=== PATIENT | female | born 1970 | race Hispanic/Latino ===

== ENCOUNTER 2022-07-12 14:53 | Emergency (ER) | payer BC, OTHER ==
--- NOTE | 2022-07-12 17:06 | RAD REPORT ---
EXAM DESCRIPTION: US - Abdomen Exam Limited - 07/12/2022 4:19 pm CLINICAL HISTORY: EPIGASTRIC PAIN COMPARISON: HEPATOBILIARY DUCTAL IMAGING dated 04/27/2011 TECHNIQUE: Sonographic grayscale and color flow images of the right upper quadrant were obtained. FINDINGS: The gallbladder demonstrates small echogenic nonshadowing at current foci along the depend ent and anti dependent wall, could reflect small adherent calculi or small polyps. No pericholecystic fluid or gallbladder wall thickening. The common bile duct is normal measuring 4 mm. The liver demonstrates no findings of intrahepatic biliary dilatation. IMPRESSION: Small adherent calculi versus small polyps along the wall of the gallbladder. No sonogra phic findings to suggest acute cholecystitis.
[2022-07-12 17:43] LABS: Urine Blood Negative (Negative); Urine Glucose Negative (Negative); Urine Protein Negative (Negative); Urine pH 5.5 (5.0-7.0)
[2022-07-12 17:52] LABS: Urine Bacteria <20 /HPF (<20); Urine Mucus Slight /HPF (None Seen); Urine RBC <5 /HPF (None Seen)
[2022-07-12] MEDS ORDERED: ONDANSETRON 4 MG/2 ML VIAL ONE (18:21)
[2022-07-12 18:27] LABS: Absolute Lymphocytes (CBC) 1.6 K/uL (0.7-4.9); Hematocrit 43.1 % (36.0-45.0); Lymphocytes % 23.3 % (15.3-44.8); MCV 87.8 fL (80-100); MPV 7.6 fL (7.6-11.3); RBC Red Blood Cell Count 4.91 M/uL (3.86-4.86)
[2022-07-12 18:44] LABS: Albumin 3.7 g/dL (3.4-5.0); Bilirubin Total 0.3 mg/dL (0.2-1.0); Potassium 3.3 mmol/L (3.5-5.1); Protein, Total 7.8 g/dL (6.4-8.2)
[2022-07-12] MEDS ORDERED: POTASSIUM 25 MEQ EFFERV TAB ONE (19:36)
--- NOTE | 2022-07-12 19:42 | ER ---
Nurse's Notes [facility] Name: Janice Torrez Age: 51 yrs Sex: Female : 1970 Arrival Date: 07/12/2022 Time: 15:01 Bed 18 Private MD: Diagnosis: Epigastric pain;Gastro-esophageal reflux disease without esophagitis Presentation: 07/12 15:38 Chief complaint: Patient states: she feels like she has burning when she swallows. ap3 patient also reports constipation. last bowel movement was yesterday but it was very little. patient has pain in her esophagus at night when she lays down. Coronavirus screen: At this time, the client does not indicate any symptoms associated with coronavirus-19. Ebola Screen: No symptoms or risks identified at this time. Initial Sepsis Screen: Does the patient meet any 2 criteria? No. Patient's initial sepsis screen is negative. Does the patient have a suspected source of infection? No. Patient's initial sepsis screen is negative. Risk Assessment: Do you want to hurt yourself or someone else? Patient reports no desire to harm self or others. 15:38 Method Of Arrival: Ambulatory ap3 15:38 Acuity: JULIO C 3 ap3 15:46 Onset of symptoms was 2010. ap3 Triage Assessment: 15:44 General: Appears in no apparent distress. Behavior is calm, cooperative. EENT: Reports ap3 pain when swallowing. Neuro: Level of Consciousness is awake, alert, obeys commands, Oriented to person, place, time, situation, Gait is steady, Speech is normal. Cardiovascular: Patient's skin is warm and dry. Respiratory: Airway is patent Respiratory effort is even, unlabored, Respiratory pattern is regular, symmetrical. GI: Reports indigestion. Historical: - Allergies: 15:43 No Known Allergies; ap3 - Home Meds: 15:43 None [Active]; ap3 - PMHx: 15:43 Gastroesophageal reflux disease; ap3 - PSHx: 15:43 section; ap3 - Immunization history:: Client reports receiving the 2nd dose of the Covid vaccine, Flu vaccine is not up to date. - Social history:: Smoking status: Patient denies any tobacco usage or history of. Patient uses. Screenin:42 [facility] ED Fall Risk Assessment (Adult) History of falling in the last 3 months, ap3 including since admission No falls in past 3 months (0 pts). Abuse screen: Denies threats or abuse. Nutritional screening: No deficits noted. Tuberculosis screening: No symptoms or risk factors identified. Assessment: 15:42 Pain: Complains of pain in mid-sternal area. Respiratory: Airway is patent Respiratory ap3 effort is even, unlabored. 19:52 Respiratory: Breath sounds are clear. aa9 19:53 Reassessment: Patient appears in no apparent distress at this time. Patient and/or aa9 family updated on plan of care and expected duration. Pain level reassessed. Patient is alert, oriented x 3, equal unlabored respirations, skin warm/dry/pink. Patient denies pain at this time. Patient states feeling better. Vital Signs: 15:38 BP 123 / 83; Pulse 92; Resp 18; Temp 98.8; Pulse Ox 100% ; Weight 63.5 kg; ap3 19:52 BP 113 / 55; Pulse 85; Resp 19 S; Pulse Ox 98% on R/A; aa9 ED Course: 15:01 Patient arrived in ED. as 15:16 Wiley Marcus PA is PHCP. cp 15:16 Wiley Del Valle MD is Attending Physician. cp 15:41 Triage completed. ap3 15:42 Arm band placed on right wrist. ap3 17:38 Savannah Thornton, ROBYN is Primary Nurse. kr3 18:01 Urine --Ancillary (enter results) Sent. kr3 18:12 Urine Microscopic Only Sent. kr3 18:18 CBC with Diff Sent. mm9 18:18 CMP Sent. mm9 18:18 Lipase Sent. mm9 18:19 Patient has correct armband on for positive identification. Bed in low position. Call mm9 light in reach. Side rails up X 1. Adult w/ patient. Warm blanket given. Pulse ox on. NIBP on. 19:38 Laron Pollock MD is Referral Physician. cp 19:52 No provider procedures requiring assistance completed. IV discontinued, intact, aa9 bleeding controlled, No redness/swelling at site. Pressure dressing applied. Administered Medications: 18:49 Drug: Zofran (Ondansetron) 4 mg Route: IVP; Site: right antecubital; kr3 19:52 Drug: Potassium Effervescent Tablet 50 mEq Route: PO; aa9 19:52 Follow up: Response: No adverse reaction aa9 Medication: 19:52 VIS not applicable for this client. aa9 Outcome: 19:41 Discharge ordered by . diego 19:52 Discharged to home ambulatory, with family. aa9 19:52 Condition: stable 19:52 Discharge instructions given to patient, family, Instructed on discharge instructions, follow up and referral plans. medication usage, Demonstrated understanding of instructions, follow-up care, medications, Prescriptions given X 2. 19:53 Patient left the ED. aa9 Signatures: Marium Grullon Corey, Sindhu Manuel cp RN RN ap3 Shanta Yee RN RN aa9 Savannah Thornton RN RN kr3 Zarina Grullon mm9
--- NOTE | 2022-07-12 19:42 | EDPHYS ---
Physician Documentation [facility] Name: Janice Torrez Age: 51 yrs Sex: Female : 1970 Arrival Date: 07/12/2022 Time: 15:01 Bed 18 Private MD: ED Physician Wiley Del Valle HPI: 07/12 16:00 This 51 yrs old Female presents to ER via Ambulatory with complaints of Sore cp Throat, Weakness, Constipation, Vaginal Pain, Numbness. 16:00 The patient presents with sore throat. cp 16:00 Onset: The symptoms/episode began/occurred gradually. Severity of symptoms: in the emergency department the symptoms are unchanged. Associated signs and symptoms: Pertinent positives: epigastric burning, general weakness, Pertinent negatives fever, vomiting. Patient reports symptoms worse at night when lying back. Brought GI reports from 2010 that showed upper endoscopy pictures and patient reports history of gastric polyps. Patient communicates using sign language and sister accompanies patient and acts as industrial maintenance manager. Historical: - Allergies: 15:43 No Known Allergies; ap3 - Home Meds: 15:43 None [Active]; ap3 - PMHx: 15:43 Gastroesophageal reflux disease; ap3 - PSHx: 15:43 section; ap3 - Immunization history:: Client reports receiving the 2nd dose of the Covid vaccine, Flu vaccine is not up to date. - Social history:: Smoking status: Patient denies any tobacco usage or history of. Patient uses. ROS: 16:05 Constitutional: Negative for body aches, chills, fever, poor PO intake. cp 16:05 Eyes: Negative for injury, pain, redness, and discharge. cp 16:05 ENT: Positive for sore throat, Negative for drainage from ear(s), ear pain, difficulty swallowing, difficulty handling secretions. 16:05 Cardiovascular: Positive for substernal pain described as burning, Negative for edema, palpitations. 16:05 Respiratory: Negative for cough, shortness of breath, wheezing. 16:05 Abdomen/GI: Positive for abdominal pain, of the epigastric area, Negative for diarrhea, constipation, dysphagia. 16:05 Back: Negative for pain at rest, pain with movement. 16:05 : Negative for urinary symptoms. 16:05 Neuro: Positive for weakness, Negative for altered mental status, headache, syncope. 16:05 All other systems are negative. Exam: 16:10 Constitutional: The patient appears in no acute distress, alert, awake, cp non-diaphoretic, non-toxic, well developed, well nourished. 16:10 Head/Face: Normocephalic, atraumatic. cp 16:10 Eyes: Periorbital structures: appear normal, Conjunctiva: normal, no exudate, no injection, Sclera: no appreciated abnormality, Lids and lashes: appear normal, bilaterally. 16:10 ENT: External ear(s): are unremarkable, Ear canal(s): are normal, clear, TM's: dullness, bilaterally, Nose: is normal, Mouth: Lips: moist, Oral mucosa: pink and intact, moist, Posterior pharynx: Airway: no evidence of obstruction, patent, Tonsils: no enlargement, no exudate, swelling, is not appreciated, erythema, is not appreciated, exudate, is not appreciated. 16:10 Neck: ROM/movement: is normal, is supple, without pain, no range of motions limitations, no meningismus. 16:10 Chest/axilla: Inspection: normal, Palpation: is normal, no crepitus, no tenderness. 16:10 Cardiovascular: Rate: normal, Rhythm: regular, Edema: is not appreciated, JVD: is not appreciated. 16:10 Respiratory: the patient does not display signs of respiratory distress, Respirations: normal, no use of accessory muscles, no retractions, labored breathing, is not present, Breath sounds: are clear throughout, no decreased breath sounds, no stridor, no wheezing. 16:10 Abdomen/GI: Inspection: abdomen appears normal, Bowel sounds: active, all quadrants, Palpation: soft, in all quadrants, mild abdominal tenderness, in the epigastric area, rebound tenderness, is not appreciated, involuntary guarding, is not appreciated. 16:10 Back: pain, is absent, ROM is normal. 16:10 Neuro: Orientation: to person, place \T\ time. Mentation: is normal, Cerebellar function: is grossly normal, Motor: moves all fours, strength is normal, Sensation: is normal. 18:29 ECG was reviewed by the Attending Physician. cp Vital Signs: 15:38 BP 123 / 83; Pulse 92; Resp 18; Temp 98.8; Pulse Ox 100% ; Weight 63.5 kg; ap3 19:52 BP 113 / 55; Pulse 85; Resp 19 S; Pulse Ox 98% on R/A; aa9 MDM: 15:47 Patient medically screened. 19:40 Data reviewed: vital signs, nurses notes, lab test result(s), EKG, radiologic studies, cp ultrasound. 07/12 15:49 Order name: CBC with Diff 07/12 15:49 Order name: CMP 07/12 15:49 Order name: Lipase 07/12 15:49 Order name: Urine Microscopic Only 07/12 17:43 Order name: Urine Dipstick-Ancillary; Complete Time: 17:59 EDMS 07/12 18:00 Interpretation: Normal except: UESTR 1+. 07/12 17:46 Order name: Urine --Ancillary (enter results) em1 07/12 15:49 Order name: US Abdomen Limited: gallbladder 07/12 17:07 Order name: US; Complete Time: 17:26 EDMS 07/12 18:00 Interpretation: Report reviewed. 07/12 17:49 Order name: Urine --Ancillary; Complete Time: 17:59 EDMS 07/12 17:52 Order name: Urine Microscopic Only; Complete Time: 17:59 EDMS 07/12 18:28 Order name: CBC with Automated Diff; Complete Time: 18:43 EDMS 07/12 18:43 Interpretation: Normal except: RBC 4.91. 07/12 18:45 Order name: Comprehensive Metabolic Panel; Complete Time: 19:23 EDMS 07/12 19:23 Interpretation: Normal except: K 3.3; GLUC 112; GLOB 4.1; A/G 0.9. 07/12 18:45 Order name: Lipase; Complete Time: 19:23 EDMS 07/12 15:49 Order name: IV Saline Lock; Complete Time: 18:19 07/12 15:49 Order name: Labs collected and sent; Complete Time: 18:19 07/12 15:49 Order name: Urine Dipstick-Ancillary (obtain specimen); Complete Time: 17:45 07/12 15:49 Order name: Urine Test (obtain specimen); Complete Time: 17:45 07/12 15:49 Order name: NPO; Complete Time: 18:01 07/12 17:26 Order name: EKG; Complete Time: 17:27 cp 07/12 17:26 Order name: EKG - Nurse/Tech; Complete Time: 18:18 cp EC:29 Rate is 73 beats/min. Rhythm is regular. WA interval is normal. QRS interval is normal. cp QT interval is normal. T waves are Inverted in lead aVR. Interpreted by me. Reviewed by me. Administered Medications: 18:49 Drug: Zofran (Ondansetron) 4 mg Route: IVP; Site: right antecubital; kr3 19:52 Drug: Potassium Effervescent Tablet 50 mEq Route: PO; aa9 19:52 Follow up: Response: No adverse reaction aa9 Disposition Summary: 07/12/22 19:41 Discharge Ordered Location: Home cp Problem: new cp Symptoms: have improved cp Condition: Stable cp Diagnosis - Epigastric pain cp - Gastro-esophageal reflux disease without esophagitis cp Followup: cp - With: Laron Pollock MD - When: 2 - 3 days - Reason: Recheck today's complaints Discharge Instructions: - Discharge Summary Sheet cp - Abdominal Pain, Adult cp - Gastroesophageal Reflux Disease, Adult cp - Indigestion cp Forms: - Medication Reconciliation Form cp - Thank You Letter cp - Antibiotic Education cp - Prescription Opioid Use cp Prescriptions: - Protonix 40 mg Oral Tablet - take 1 tablet by ORAL route once daily; 30 tablet; Refills: 0, Product cp Selection Permitted - Zofran 4 mg Oral Tablet - take 1 tablet by ORAL route every 12 hours As needed; 20 tablet; Refills: 0, cp Product Selection Permitted Signatures: Dispatcher [employer] EDMS Wiley Marcus PA PA cp Sindhu Morales RN RN ap3 Shanta Yee RN RN aa9 Savannah Thornton RN RN kr3 Corrections: (The following items were deleted from the chart) 07/13 18:28 07/12 19:40 Data reviewed: vital signs, nurses notes, lab test result(s), EKG, cp radiologic studies, plain films, ultrasound, cp
[2022-07-12 20:25] VITALS: TEMP 98.8
[2022-07-12 20:26] VITALS: BP 113/55; O2SAT 98
--- NOTE | 2022-07-13 15:22 | EKG ---
Test Date: 2022-07-12 Test Time: 18:23:13 [employer] Interpreter: MAY MEASUREMENT RESULTS: Intervals: Rate: 73 PA: 172 QRSD: 70 QT: 396 QTc: 436 [place]ney: P: 59 PA: 172 QRS: 31 T: 58 INTERPRETIVE STATEMENTS: Normal sinus rhythm Low voltage QRS Borderline ECG No previous ECG available for comparison Electronically Signed On 07-13-22 15:19:42 [employer] by Mo Pratt
== END 2022-07-12 19:53 | disposition home or self-care (01) ==
LOC: ER 14:53
DX: K21.9 Gastro-esophageal reflux disease without esophagitis (principal)
CPT/HCPCS: 93005; 85025; 36415; 81025; 83690; 80053; 76705; 96374; 99284; J2405; 81003; 81015